=== PATIENT | female | born 1970 | race Caucasian/White ===

== ENCOUNTER 2019-05-06 10:33 | Emergency (ER) | payer BC, SELFPAY ==
--- NOTE | 2019-05-06 10:45 | ED.RECABL ---
HPI - Recheck/Abnormal Lab/Rx General Chief Complaint: Recheck/Abnormal Lab/Rx Stated Complaint: BP ELEVATED Time Seen by Provider: 05/06/19 10:43 Source: patient Mode of arrival: ambulatory Limitations: no limitations History of Present Illness HPI narrative: A 48 y/o female presents to the ED, with c/o high BP at her OBGYN appointment this morning. Pt states her BP was 177/107 in her OBGYN office and her OBGYN, Dr. Oakes discontinued her appointment and sent her to the ED for evaluation. She states she was seen at her OBGYN because she has been on her menstrual cycle for 9 days (since 04/28/2019) with increasingly heavy vaginal bleeding, and lower ABD pain. Pt notes that her normal cycle is usually 4 days long. Pt denies AGUIRRE, N/V/D, constipation, CP or SOB. She denies any PMHx of anxiety or depression and denies taking any prescription medications. Pt notes a PSHx of cholecystectomy. Pt denies hx of smoking and notes that she is an occasional drinker. She reports taking Ibuprofen for her lower ABD pain. complaint: other (High BP reading) Initial visit (ago): hour(s) Description of abnormal result: 177/107 Context: other (sent by OBGYN during appointment) Associated symptoms: abdominal pain (lower d/t menstrual cycle) Treatments prior to arrival: other (Ibuprofen) Related Data Home Medications Medication Instructions Recorded Confirmed No Home Medications 05/06/19 05/06/19 Allergies Allergy/AdvReac Type Severity Reaction Status Date / Time No Known Allergies Allergy Unknown Verified 05/06/19 10:58 Review of Systems Review of Systems: All systems reviewed & are unremarkable except as noted in HPI and below Constitutional: Constitutional: Denies headache(s) Cardiovascular: Cardiovascular: Denies chest pain and Denies dyspnea Gastrointestinal: Gastrointestinal: Reports abdominal pain (lower), Denies constipation, Denies diarrhea, Denies nausea and Denies vomiting Genitourinary: Genitourinary: Reports abnormal menses (9 day cycle, heavy vaginal bleeding) [facility] Past Medical History Medical History (Updated 05/06/19 @ 13:30 by Kyle Magana MD) Gallbladder disease Hypertension induced hypertension Right wrist fracture Surgical History Surgical History (Updated 05/06/19 @ 12:26 by SERJIO Granados) History of cholecystectomy Social History Social History (Updated 05/06/19 @ 12:26 by Rajinder [employer]) Smoking status: Never smoker Second hand tobacco smoke exposure: Yes () Exam Narrative: Exam Narrative: General appearance: Well-developed, well-nourished Skin: Normal color Head: Normocephalic, nontraumatic Eyes: Clear conjunctiva ENT: Oropharynx normal, ears normal, nose normal Neck: Supple, nontender Chest and respiratory: Airway patent, no respiratory distress, no accessory muscle use Heart: Regular rate/rhythm Abdomen: Soft, nontender, no organomegaly, quiet bowel sounds Vascular: Normal peripheral pulses, normal capillary refill. Musculoskeletal: Normal range of motion, nontender back Neurologic: Alert and oriented ?3, BILLING ASSISTANT is normal as tested, no gross motor deficit : Other: Vaginal exam showed trace of vaginal bleeding, small blood clots, 3 long Q-tips was enough to dry the whole vaginal pouch, I could not see the cervix. Course Course Emergency Course: Stable Consultations Consultation #1: Discussed case with pt's OBGYN, Dr. Oakes. Dr. Oakes is aware that pt is anemic at this time and suggests follow-up in her office and to have pt follow-up with PCP. Date: 05/06/19 Time: 13:41 Vital Signs Vital signs: Vital Signs Temperature 36.9 C 05/06/19 10:48 Pulse Rate 89
[2019-05-06 10:48] VITALS: BP 177/107; PULSE 89; RESP 16; TEMP 36.9; O2SAT 100
--- NOTE | 2019-05-06 10:54 | ECG_ITS ---
Measurements Intervals Pep Rate: 69 P: 55 VT: 128 QRS: 42 QRSD: 90 T: 29 QT: 382 QTc: 411 Interpretive Statements SINUS RHYTHM NONSPECIFIC ST & T-WAVE ABNORMALITY- LATERAL LEADS BASELINE ARTIFACT- V5-V6 BORDERLINE ECG Electronically Signed On 05-06-2019 12:02:09 CDT by Jay Jay Worthy D.O.
[2019-05-06 11:07] LABS: Basophils Absolute Auto 0.1 K/mm3 (0.0-0.1); Basophils Percent Auto 1.3 % (0.2-1.2); Eosinophils Absolute Auto 0.3 K/mm3 (0-0.3); Eosinophils Percent Auto 4.9 % (0-4.4); Hematocrit 28.4 % (37.0-47.0); Hemoglobin 8.1 g/dL (12.0-15.0); Immature Granulocyte Absolute 0.01 K/mm3 (0.00-0.031); Immature Granulocyte Percent A 0.2 % (0-0.5); Lymphocytes Absolute Auto 2.07 K/mm3 (0.9-3.2); Lymphocytes Percent Auto 33.5 % (18.3-44.2); Mean Corpuscular HGB Conc 28.5 g/dl (32-36); Mean Corpuscular Hemoglobin 19.7 pg (26-34); Mean Corpuscular Volume 68.9 fl (80-100); Mean Platelet Volume 9.5 fl (7.4-10.4); Monocytes Absolute Auto 0.7 K/mm3 (0.1-0.6); Monocytes Percent Auto 11.2 % (2.6-8.5); Neutrophils Percent Auto 48.9 % (45.5-73.1); Platelet Count Result 408 k/mm3 (150-375); Red Blood Count 4.12 M/mm3 (4.2-5.4); Red Cell Distribution Width 18.6 % (11.5-14.5); White Blood Count 6.2 K/mm3 (4.5-10.0)
[2019-05-06 11:20] LABS: Alanine Aminotransferase 20 U/L (4-35); Albumin Level 4.1 g/dL (3.5-5.1); Alkaline Phosphatase 58 U/L (38-126); Aspartate Amino Transferase 25 U/L (14-36); Bilirubin,Total 0.2 mg/dL (0.2-1.3); Blood Urea Nitrogen 16 mg/dL (7-17); Calcium 8.7 mg/dL (8.4-10.2); Carbon Dioxide 22 mmol/L (22-30); Chloride 105 mmol/L (98-107); Estimated CRCL calculation 101 ml/min; Estimated Glomerular Filt Rate > 60; Glucose 101 mg/dL (65-105); Lipase 166 U/L (23-300); Potassium 4.3 mmol/L (3.4-5.0); Sodium 135 mmol/L (137-145)
[2019-05-06 11:23] LABS: Hypochromasia 1+ (NORMAL); Ovalocytes 1+ (NORMAL); Platelet Estimate Adequate (Adequate)
--- NOTE | 2019-05-06 11:31 | PC.NURSE ---
Patient up to bathroom to provide urine.
--- NOTE | 2019-05-06 11:48 | PC.NURSE ---
Urine sample provided by the patient was grossly bloody and contained blood clots. Patient reports having large amount of vaginal bleeding. She reports that she has placed a tampon and will attempt to provide another specimen as soon as she is able. The current sample was sent down to the lab.
[2019-05-06 12:17] LABS: Appearance Urine Cloudy (Clear); Color Urine Red (Yellow)
[2019-05-06 12:18] LABS: Blood Urine 3+ (Negative); Glucose Urine UA 1+ mg/dL (Negative); Ketones Urine Negative (Negative); Protein Urine 3+ mg/dL (Negative); Specific Grav Ur 1.024 (1.001-1.035)
[2019-05-06 12:19] LABS: Add Urine Microscopic? YES; Bilirubin Urine Negative (Negative); Leukocyte Esterase Ur Negative LEU/UL (Negative); Nitrate Urine Negative (Negative); Urobilinogen Urine Negative mg/dL (<2.0)
[2019-05-06 12:20] LABS: RBC Urine >75 /hpf (0-2); Squamous Epithelial Cell Urine Many /hpf (Few); WBC Urine >75 /hpf
[2019-05-06 12:22] VITALS: BP 166/99; PULSE 70; RESP 18; TEMP 36.2; O2SAT 100
--- NOTE | 2019-05-06 13:13 | PC.NURSE ---
EDP in room with medical imaging technician for pelvic exam at this time.
[2019-05-06 13:30] VITALS: BP 158/94; PULSE 68; RESP 19; TEMP 36.6; O2SAT 100
[2019-05-06 14:06] VITALS: BP 149/86; PULSE 66; RESP 17; TEMP 36.7; O2SAT 100
== END 2019-05-06 14:06 | disposition home or self-care (01) ==
PROVIDERS: Emergency Provider Emergency Medicine
DX: I10 Essential (primary) hypertension (principal); N93.8 Other specified abnormal uterine and vaginal bleeding; D50.9 Iron deficiency anemia, unspecified; N39.0 Urinary tract infection, site not specified; F41.9 Anxiety disorder, unspecified; F32.9 Major depressive disorder, single episode, unspecified; R94.31 Abnormal electrocardiogram [ECG] [EKG]
CPT/HCPCS: 36415; 80053; 81001; 81025; 83690; 85025; 87077; 87086; 87088; 87186; 93005; 99283

== ENCOUNTER 2019-05-12 00:34 | Day surgery (SDC) | payer BC, SELFPAY ==
[2019-05-08 10:48] VITALS: BMI 33.6
[2019-05-12] MEDS: LACTATED RINGERS 1,000 ML 30 ML IV CONT (07:40)
--- NOTE | 2019-05-12 07:42 | WPDANESEPPF ---
Anes - Initial Pre Proc Eval Procedure: Operation Date: 05/12/19 09:00 Proposed Procedures p Hysteroscopy, Dilation and Curettage - Catrina Oakes MD Date/Time: 05/12/19 07:42 Surgeon: Catrina Oakes MD Pre Op Diagnosis: menorrhaghia Patient Data Age: 48 Gender: F Height: 5 ft 7 in Weight: 97.52 kg Allergies Allergy/AdvReac Type Severity Reaction Status Date / Time No Known Allergies Allergy Unknown Verified 05/08/19 10:49 Home Medications Medication Instructions Recorded Confirmed Type ferrous gluconate 324 mg PO DAILY #30 tablet 05/06/19 05/08/19 Rx losartan 50 mg PO DAILY #30 tablet 05/06/19 05/08/19 Rx nitrofurantoin monohyd/m-cryst 100 mg PO Q12H 5 Days #10 cap 05/06/19 05/08/19 Rx [Macrobid] Patient hx anesthesia problems: none Family hx anesthesia problems: none PMFSH Past Medical History Medical History Gallbladder disease Hypertension induced hypertension Right wrist fracture Surgical History Surgical History History of cholecystectomy Social History Social History Smoking status: Never smoker Second hand tobacco smoke exposure: Yes () Anes - Eval Final PreProcedure Day of Procedure 05/12/19 07:42 Patient weight: overweight Heart: regular rate and rhythm Lungs: clear to auscultation Airway: Mallampati scale class 1 Neurological: alert and oriented Last oral intake: >/= 8 hours ASA classification: II Emergent: yes Anesthetic plan: proceed Anesthesia type and monitoring: general GIVS and standard monitoring Informed Consent: The patient's anesthetic plan and its attendant risks and benefits were discussed with the patient/family/POA. Questions were solicited and answers provided to the satisfaction of the patient/family/POA.
[2019-05-12 07:45] VITALS: BP 146/91; PULSE 95; TEMP 36.7; O2SAT 100
[2019-05-12 07:55] LABS: Hematocrit 27.4 % (37.0-47.0); Hemoglobin 7.9 g/dL (12.0-15.0)
--- NOTE | 2019-05-12 08:44 | PM.HPGS ---
History of Present Illness History of Present Illness Consent: Risks, benefits, and alternatives have been discussed and questions answered. Patient agrees to proceed with procedure. Chief complaint: menorrhaghia Narrative: Rosey Preciado is a 48 year old female with recent onset of heavy cycles. Hb 8.1. Recommend to proceed with D&C hysteroscopy with possible myosure. Possible pathology discussed. Risks of infection, bleeding, and perforation reviewed. Fluid imbalance discussed. Patient agrees to proceed. [facility] Past Medical History Medical History (Updated 05/12/19 @ 08:47 by Catrina Oakes MD) Gallbladder disease Hypertension (normal spontaneous vaginal delivery) x 2 induced hypertension Right wrist fracture Surgical History Surgical History History of cholecystectomy Social History Social History Smoking status: Never smoker Second hand tobacco smoke exposure: Yes () Meds Home Medications and Allergies Home Medications Medication Instructions Recorded Confirmed Type ferrous gluconate 324 mg PO DAILY #30 tablet 05/06/19 05/08/19 Rx losartan 50 mg PO DAILY #30 tablet 05/06/19 05/08/19 Rx nitrofurantoin monohyd/m-cryst 100 mg PO Q12H 5 Days #10 cap 05/06/19 05/08/19 Rx [Macrobid] Allergies Allergy/AdvReac Type Severity Reaction Status Date / Time No Known Allergies Allergy Unknown Verified 05/08/19 10:49 Vital Signs Vital Signs - 24 hr 05/12/19 07:45 Temperature 98.0 F Pulse Rate 95 Blood Pressure 146/91 H Pulse Oximetry 100 Exam Const: General: healthy appearing and alert Orientation/consciousness: patient oriented x3 Resp: Effort & Inspection: normal respiratory effort Auscultation: clear to auscultation bilaterally Cardio: Rate: regular rate Rhythm: regular rhythm GI: GI Palp: Yes Soft to palpation, No Tenderness to palpation present (GI) and No Palpable mass present : External Female Exam: normal external appearance Speculum Exam - Vagina: normal appearance of the vagina and normal vaginal discharge Speculum Exam - Cervix: normal appearance of the cervix Bimanual exam- vagina & uterus: uterine size normal and consistency normal Bimanual Exam- Adnexa, other: normal adnexae and No adnexal tenderness Neuro: General: patient oriented x3 Assessment and Plan Assessment and plan (1) Menorrhagia: Code(s): N92.0 - Excessive and frequent menstruation with regular cycle Status: Acute Assessment and Plan: with anemia Plan to proceed with hysteroscopy D&C
[2019-05-12] MEDS: KETOROLAC 30 MG/ML VIAL (*BKC) IV PUSH (09:21)
--- NOTE | 2019-05-12 09:23 | SUR.OPER ---
Ebl=5ml
--- NOTE | 2019-05-12 09:26 | PM.OP ---
Procedure Note - Brief Procedure Note - Brief Date of procedure: 05/12/19 Pre-op diagnosis: menorrhaghia Post-op diagnosis: same Procedure performed: D&C hysteroscopy with Myosure resection of fibroids Anesthesia: local Surgeon: Catrina Oakes MD Estimated blood loss (mL): 5 Drains: No Packing: No Pathology: yes (endometrial curettings and shavings) Complications: No immediate complications Condition: stable Disposition: PACU Findings: Uterus 8 cm; large fibroids left lateral and anterior
[2019-05-12 09:34] VITALS: BP 118/67; PULSE 83; RESP 18; TEMP 36.7; O2SAT 99
[2019-05-12 10:04] VITALS: BP 125/74; PULSE 63; RESP 18; O2SAT 100
--- NOTE | 2019-05-12 10:28 | SUR.PHASEII ---
DISCHARGE PACKET WOULD NOT PRINT OUT. PT GIVEN PAPER DISCHARGE INSTRUCTIONS. ALL QUESTIONS ANSWERED.
--- NOTE | 2019-05-12 10:53 | OP_ITS ---
DATE OF PROCEDURE: 05/12/2019 PREOPERATIVE DIAGNOSIS: Menorrhagia with anemia. POSTOPERATIVE DIAGNOSIS: Menorrhagia with anemia. PROCEDURE: D and C and hysteroscopy with MyoSure resection of fibroids. SURGEON: Catrina Oakes M.D. ANESTHESIA: MAC and local. FINDINGS: The uterus sounds to 8 cm. There was a large left lateral fibroid, as well as a sessile anterior fibroid. The remainder of the endometrium appears grossly normal. ESTIMATED BLOOD LOSS: 5 cc. PATHOLOGY: Endometrial shavings and curettings. DESCRIPTION OF PROCEDURE: The patient was taken to the operating room and placed under anesthesia in the dorsal lithotomy position. She was prepped and draped in the usual sterile fashion. A bivalved speculum was placed in the vagina. Cervix was grasped on the anterior lip with a tenaculum and injected with 1% lidocaine. The uterus was sounded to 8 cm. The cervix was serially dilated with Hegar's. A diagnostic hysteroscope was placed with the above-stated findings. The MyoSure device was opened and placed. Under direct visualization, the fibroids were shaved until the endometrium was smooth. The MyoSure device was then removed. A medium sharp curette was used to sharply curette the endometrium until a good uterine cry was noted in all areas. All instruments were then removed. The patient was awakened from anesthesia and taken to Recovery in stable condition. D I MT: Janis
== END 2019-05-12 10:21 | disposition home or self-care (01) ==
PROVIDERS: PCP Emergency Medicine; Visit Provider Obstetrics & Gynecology Gynecology
PROC: 0U5B8ZZ Destruction of Endometrium, Via Natural or Artificial Opening Endoscopic (ICD-10-PCS; CPT 58563; principal; 2019-05-12 08:15)
DX: N92.0 Excessive and frequent menstruation with regular cycle (principal); D64.9 Anemia, unspecified; D25.9 Leiomyoma of uterus, unspecified; I10 Essential (primary) hypertension
CPT/HCPCS: 58558; 36415; 85014; 85018; 88305; A9270; J1885; J2250; J2704; J3010; J7030; J7120

== ENCOUNTER → 2020-05-12 15:19 | Outpatient (CLI) | payer BC, SELFPAY ==
--- NOTE | ~2020-05-12 | MM_ITS ---
EXAMINATION: MM screening dorothy BI w shyam HISTORY: Screening TECHNIQUE: Craniocaudal and mediolateral oblique 3-D tomosynthesis images were obtained and synthetic 2-D images were generated. CAD analysis was submitted and interpreted. COMPARISON: No prior mammogram is available for comparison at this institution. BREAST PARENCHYMAL COMPOSITION: There are scattered areas of fibroglandular density. FINDINGS: There are asymmetries in the mid outer aspect of the left breast. There are no suspicious m asses, calcifications or architectural distortion in the right breast. IMPRESSION: 1. Focal asymmetry mid lateral aspect of the left breast. 2. Additional mammographic views and possible breast ultrasound are recommended. BI-RADS Category 0: Incomplete: Needs additional imaging evaluation. Reviewed, dictated and finalized at location A. IMPRESSION: 1. Focal asymmetry mid lateral aspect of the left breast. 2. Additional mammographic views and possible breast ultrasound are recommended . BI-RADS Category 0: Incomplete: Needs additional imaging evaluation.
== END ==
PROVIDERS: PCP Emergency Medicine; Visit Provider Obstetrics & Gynecology Gynecology
DX: Z12.31 Encounter for screening mammogram for malignant neoplasm of breast (principal); R92.8 Other abnormal and inconclusive findings on diagnostic imaging of breast
CPT/HCPCS: 77063; 77067

== ENCOUNTER → 2020-06-04 07:55 | Outpatient (CLI) | payer BC, SELFPAY ==
--- NOTE | ~2020-06-04 | MMUS_ITS ---
EXAMINATION: MM diagnostic mammo unilat LT, US breast LT limited HISTORY: Follow-up left breast asymmetry TECHNIQUE: Additional 3-D tomosynthesis images of the left breast were performed and synthetic 2-D im ages were generated. CAD analysis was submitted and interpreted. High resolution left breast ultrasou nd was performed. COMPARISON: 05/12/2020 BREAST PARENCHYMAL COMPOSITION: Breast composed of scattered areas of fibroglandular density. FINDINGS: MAMMOGRAPHIC FINDINGS: There are no suspicious masses, calcifications or architectural distortion in the left breast to sugg est malignancy. ULTRASOUND: Limited left breast ultrasound: At 2:00, 5 cm from the nipple, there is a 4 mm cyst. At 2:00, 4 cm fr om the nipple there is a 6 mm cyst. At 3:00, 6 cm from the nipple, there is a 5 mm cyst. Near the are rajinder there is a 6 mm cyst. No suspicious masses to suggest malignancy. IMPRESSION: 1. No evidence for malignancy in the left breast. Benign findings. 2. Routine yearly screening mammogram and regular clinical breast examination are recommended. BI-RADS Category 2: Benign finding(s). Reviewed, dictated and finalized at location A. IMPRESSION: 1. No evidence for malignancy in the left breast. Benign findings. 2. Routine yearly screening mammogram and regular clinical breast examination a re recommended. BI-RADS Category 2: Benign finding(s).
== END ==
PROVIDERS: PCP Emergency Medicine; Visit Provider Emergency Medicine
DX: R92.8 Other abnormal and inconclusive findings on diagnostic imaging of breast (principal)
CPT/HCPCS: 76642; 77065

== ENCOUNTER → 2021-09-21 15:15 | Outpatient (CLI) | payer BC, SELFPAY ==
--- NOTE | ~2021-09-21 | MM_ITS ---
EXAMINATION: MM screening dorothy BI w shyam HISTORY: Screening TECHNIQUE: Craniocaudal and mediolateral oblique 3-D tomosynthesis images were obtained and synthetic 2-D images were generated. CAD analysis was submitted and interpreted. COMPARISON: 05/13/2019 BREAST PARENCHYMAL COMPOSITION: There are scattered areas of fibroglandular density. FINDINGS: There is a developing asymmetry in the upper outer quadrant of the left breast. The right b reast is stable without evidence for malignancy. IMPRESSION: 1. Evolving left breast asymmetries. 2. Additional mammographic views and possible breast ultrasound are recommended. BI-RADS Category 0: Incomplete: Needs additional imaging evaluation. Reviewed, dictated and finalized at location A. IMPRESSION: 1. Evolving left breast asymmetries. 2. Additional mammographic views and possible breast ultrasound are recommended . BI-RADS Category 0: Incomplete: Needs additional imaging evaluation.
== END ==
PROVIDERS: PCP Emergency Medicine; Visit Provider Obstetrics & Gynecology Gynecology
DX: Z12.31 Encounter for screening mammogram for malignant neoplasm of breast (principal); R92.8 Other abnormal and inconclusive findings on diagnostic imaging of breast
CPT/HCPCS: 77063; 77067

== ENCOUNTER → 2021-10-07 07:48 | Outpatient (CLI) | payer BC, SELFPAY ==
--- NOTE | ~2021-10-07 | MMUS_ITS ---
EXAMINATION: MM diagnostic dorothy LT w shyam, US breast LT limited HISTORY: Left breast asymmetries reported on 09/21/2021 screening mammogram TECHNIQUE: Additional 3-D tomosynthesis images of the left breast were performed and synthetic 2-D im ages were generated. Rolled medial and rolled lateral craniocaudal views. CAD analysis was submitted and interpreted. High resolution limited left breast ultrasound was performed. COMPARISON: 09/21/2021 bilateral screening mammogram 06/04/2020 diagnostic left mammogram and limited left breast ultrasound FINDINGS: MAMMOGRAPHIC FINDINGS: No suspicious mass, architectural distortion, malignant calcification, skin thickening or retraction is detected. ULTRASOUND: At 2:00 4 cm from the nipple there is a parallel circumscribed 1.8 x 2.7 x 3 x 7 mm hypoechoic area w ithout internal vascularity or posterior shadowing, benign in appearance. Previously reported 6 mm cyst at 2:00 4 cm from nipple and 5 mm cyst at 3:00 6 cm from the nipple in addition to 6 mm cyst near the areola are no longer identified since 06/04/2020. IMPRESSION: 1. No mammographic evidence of malignancy 2. Routine annual mammographic screening is recommended BI-RADS Category 2: Benign finding(s). Reviewed, dictated and finalized at location A. IMPRESSION: 1. No mammographic evidence of malignancy 2. Routine annual mammographic screening is recommended BI-RADS Category 2: Benign finding(s).
== END ==
PROVIDERS: PCP Emergency Medicine; Visit Provider Obstetrics & Gynecology Gynecology
DX: R92.8 Other abnormal and inconclusive findings on diagnostic imaging of breast (principal)
CPT/HCPCS: 76642; 77061; 77065; G0279

== ENCOUNTER → 2021-10-29 07:33 | Outpatient (CLI) | payer BC, SELFPAY ==
--- NOTE | ~2021-10-29 | US_ITS ---
EXAMINATION: US transvaginal DATE: 10/29/2021 08:40 INDICATION: Ovarian mass TECHNIQUE: Multiple transabdominal and endovaginal sonographic images of the pelvis were obtained. COMPARISON: None. FINDINGS: Uterus: 8.3 x 5.5 x 6.0 cm. Heterogeneous parenchyma. Endometrial complex measures 7.5 mm. Right Ovary: 1.2 x 1.7 x 1.6 cm. Vascular flow is present. Left Ovary: 2.3 x 1.3 x 2.1 cm. Vascular flow is present. There is no free fluid in the pelvis. IMPRESSION: Normal pelvic sonogram findings. Reviewed, dictated and finalized at location K.
== END ==
PROVIDERS: PCP Emergency Medicine; Visit Provider Obstetrics & Gynecology Gynecology
DX: R19.09 Other intra-abdominal and pelvic swelling, mass and lump (principal)
CPT/HCPCS: 76830

== ENCOUNTER 2022-06-01 17:08 | Outpatient (CLI) | payer BC, SELFPAY ==
[2022-06-01 17:23] LABS: Hematocrit 27.9 % (37.0-47.0); Hemoglobin 8.2 g/dL (12.0-15.0)
== END 2022-06-01 17:09 | disposition home or self-care (01) ==
PROVIDERS: PCP Emergency Medicine; Visit Provider Obstetrics & Gynecology Gynecology
DX: N92.0 Excessive and frequent menstruation with regular cycle (principal)
CPT/HCPCS: 36415; 85014; 85018

== ENCOUNTER 2022-06-05 01:40 | Day surgery (SDC) | payer BC, SELFPAY ==
[2022-05-29 16:46] VITALS: BMI 35.5
--- NOTE | 2022-05-29 17:08 | PC.NURSE ---
Report to the Outpatient Waiting Room, entrance under the green pavilion located off [facility], at time 1130_ on date _06/05/22. Planned Procedure Time: 1330. Time changes happen often and if your time is changed the preop area will call you the afternoon before. - You and your visitor will be asked to self-screen and do not enter if you have any COVID symptoms. - A mask is optional within the hospital at this time. Patients may have clear liquids (water, carbonated beverages, clear teas, apple juice) until 3 hours prior to surgery with a maximum of 20 ounces. - No food from midnight until time of surgery - Infants may have breast milk until 4 hours before surgery, infant formula 6 hours prior to surgery. - Children will be allowed to drink immediately following surgery. If applicable, please bring a bottle or sippy cup to assist with drinking. Juice, water, soda, and popsicles are readily available. For infants on formula, please bring formula the day of surgery. Pacifiers are allowed. Take the following medications with a SIP of water the morning of surgery: _carvedilol_ DO NOT STOP ANY OF YOUR OTHER PRESCRIPTION MEDICATIONS PRIOR TO SURGERY ?EXCEPT THE FOLLOWING Medications to discontinue per physician __ferrous gluconate, vitamin d2 Date to take last dose_06/02/22__ Please no make-up, nail swedish, hairspray, perfume, deodorant, or body powder the day of surgery. No jewelry (including any body piercings) or valuables the day of surgery, leave them at home. Please take a shower or bath the night before, or the morning of, surgery with an antibacterial soap. Wear comfortable, loose fitting clothing. Children are encouraged to wear pajamas. - Jewelry must be removed prior to entering the operating room. Rings and piercings that are not removed may be cut off. - The hospital will not accept responsibility for valuables. - Please leave all valuables, including medications, at home the day of surgery. If you are going home after surgery, a licensed compactor driver must drive you home. - NO public transportation without another adult if you receive anesthesia. - We recommend that an adult stay with you for 24 hours following discharge. - We also recommend that you do not drive, make important decision, drink alcoholic beverages, or take any drugs that were not prescribed by your health care provider for at least 24 hours after your discharge time. For Pediatric surgeries, we recommend two adults accompany the child home. Follow any additional instructions given to you from your surgeon. If you or anyone in your household have experienced Covid symptoms in the past week, please notify your surgeon or the nurse liaison at the phone number below for possible testing. Telephone instructions given to Rosey Lauraand asked if any additional questions and then verbalized understanding. Patient advised to call surgeon office or pre surgery nurse liaison [phone] if any additional questions.
--- NOTE | 2022-06-05 08:10 | P.HP_ITS ---
History of Present Illness History of Present Illness Consent: Risks, benefits, and alternatives have been discussed and questions answered. Patient agrees to proceed with procedure. Chief complaint: menorrhagia Narrative: Rosey Preciado is a 51 year old female with menorrhagia with anemia. Patient hemoglobin is 8.2. Pelvic ultrasound was normal. It was recommended to proceed with hysteroscopy D&C to further evaluate. Risks of infection, bleeding, perforation, and possible pathology are discussed. Patient voices understanding and agrees to proceed. Review of Systems Review of Systems: not repeated day of surgery; patient states no changes in status [facility] Past Medical History Medical History (Updated 06/05/22 @ 08:12 by Catrina Oakes MD) Hypertension (normal spontaneous vaginal delivery) x 2 Right wrist fracture Surgical History Surgical History (Updated 06/05/22 @ 08:12 by Catrina Oakes MD) History of cholecystectomy History of hysteroscopy 2019 Social History Social History Smoking status: Never smoker Second hand tobacco smoke exposure: Yes () Alcohol intake: current Substance use: never Living arrangements: with family Spiritual care concerns: No Meds Home Medications and Allergies Home Medications Medication Instructions Recorded Confirmed Type ferrous gluconate 324 mg (37.5 mg 324 mg PO DAILY #30 tabs 05/06/19 05/29/22 Rx iron) tablet losartan 50 mg tablet 50 mg PO DAILY #30 tabs 05/06/19 05/29/22 Rx carvedilol 6.25 mg tablet 6.25 mg PO DAILY 05/29/22 05/29/22 History ergocalciferol (vitamin D2) 1,250 1,250 mcg PO DAILY 05/29/22 05/29/22 History mcg (50,000 unit) capsule Allergies Allergy/AdvReac Type Severity Reaction Status Date / Time No Known Allergies Allergy Unknown Verified 05/08/19 10:49 Exam Const: General: healthy appearing and alert Orientation/consciousness: patient oriented x3 Resp: Effort & Inspection: normal respiratory effort GI: GI Palp: Yes Soft to palpation, No Tenderness to palpation present (GI) and No Palpable mass present : External Female Exam: normal external appearance Speculum Exam - Vagina: normal appearance of the vagina and normal vaginal discharge Speculum Exam - Cervix: normal appearance of the cervix Bimanual exam- vagina & uterus: uterine size normal and consistency normal Bimanual Exam- Adnexa, other: normal adnexae and No adnexal tenderness Neuro: General: patient oriented x3 Assessment and Plan Assessment and plan (1) Menorrhagia: Code(s): N92.0 - Excessive and frequent menstruation with regular cycle Status: Acute Assessment and Plan: plan to proceed with D&C hysteroscopy
--- NOTE | 2022-06-05 08:10 | WPDHPUPDATE1 ---
History and Physical Update Update Date/Time: 06/05/22 08:10 History and Physical has been reviewed, including an updated exam of the patient. There are NO changes in the patient's condition. Risks, benefits, and alternatives have been discussed and questions answered. Patient agrees to proceed with procedure.
--- NOTE | 2022-06-05 09:01 | P.PNAN_ITS ---
Anes - Initial Pre Proc Eval Procedure: Operation Date: 06/05/22 11:45 Proposed Procedures p Hysteroscopy, Dilation and Curettage - Catrina Oakes MD Date/Time: 06/05/22 09:01 Surgeon: Catrina Oakes MD Pre Op Diagnosis: menorrhagia Patient Data Age: 51 Gender: F Height: 1.7 m Weight: 103 kg Allergies Allergy/AdvReac Type Severity Reaction Status Date / Time No Known Allergies Allergy Unknown Verified 06/05/22 10:26 Home Medications Medication Instructions Recorded Confirmed Type ferrous gluconate 324 mg (37.5 mg 324 mg PO DAILY #30 tabs 05/06/19 05/29/22 Rx iron) tablet losartan 50 mg tablet 50 mg PO DAILY #30 tabs 05/06/19 05/29/22 Rx carvedilol 6.25 mg tablet 6.25 mg PO DAILY 05/29/22 06/05/22 History ergocalciferol (vitamin D2) 1,250 1,250 mcg PO DAILY 05/29/22 05/29/22 History mcg (50,000 unit) capsule Patient hx anesthesia problems: none Family hx anesthesia problems: none Results Review: All pre-operative results and documents have been reviewed as part of the pre- operative evaluation. [facility] Past Medical History Medical History (Updated 06/05/22 @ 08:12 by Catrina Oakes MD) Hypertension (normal spontaneous vaginal delivery) x 2 Right wrist fracture Surgical History Surgical History (Updated 06/05/22 @ 08:12 by Catrina Oakes MD) History of cholecystectomy History of hysteroscopy 2019 Social History Social History Smoking status: Never smoker Second hand tobacco smoke exposure: Yes () Alcohol intake: current Substance use: never Living arrangements: with family Spiritual care concerns: No Anes - Eval Final PreProcedure Day of Procedure 06/05/22 09:01 Patient weight: obese Heart: regular rate and rhythm Lungs: clear to auscultation Airway: Mallampati scale class II Neurological: alert and oriented Last oral intake: >/= 8 hours ASA classification: III Emergent: no Anesthetic plan: proceed Anesthesia type and monitoring: general GIVS and standard monitoring Results Review: All pre-operative results and documents have been reviewed as part of the pre- operative evaluation. Informed Consent: The patient's anesthetic plan and its attendant risks and benefits were discussed with the patient/family/POA. Questions were solicited and answers provided to the satisfaction of the patient/family/POA.
[2022-06-05 09:34] VITALS: BP 153/90; PULSE 62; RESP 18; TEMP 36.5; O2SAT 100
[2022-06-05] MEDS: LACTATED RINGERS 1,000 ML 30 ML IV CONT (10:43)
[2022-06-05] MEDS: ACETAMINOPHEN 500 MG TABLET 1000 MG PO (10:45)
[2022-06-05] MEDS: LIDOCAINE HCL 1% LOCAL INJ 20 ML VIAL 10 ML INFILTRATE (11:45)
[2022-06-05 11:55] VITALS: BP 128/80; PULSE 64; RESP 18; O2SAT 100
--- NOTE | 2022-06-05 11:55 | W.PM.PROC2 ---
Procedure Note - Detailed Date of Procedure 06/05/22 Pre-op Diagnosis menorrhagia with anemia Post-op Diagnosis Same Procedure Performed D&C hysteroscopy Surgeon Catrina Oakes MD Anesthesia MAC and Local Findings uterus sounds to 8cm and appears grossly thickened Description of Procedure The patient is taken to operating room and placed under anesthesia in the dorsal lithotomy position. She was prepped and draped in usual sterile fashion. [place] speculum was placed in the and the cervix was grasped on the anterior lip with a tenaculum. Injected in each quadrant with lidocaine 1%. The uterus is sounded to 8cm. The hysteroscope was placed with the above-stated findings. The hysteroscope is removed and the sharp curette used to curette the endometrium until a good uterine cry was noted in all areas. Instruments were then removed. Sponge, needle, and instrument counts are correct per the OR staff. Patient is awakened from anesthesia and taken to recovery in stable condition. Estimated Blood Loss 5 Drains No Packing No Pathology Yes ( Endometrial curettings) Complications No immediate complications Condition Stable Disposition PACU
[2022-06-05 12:25] VITALS: BP 143/86; PULSE 60; RESP 18
[2022-06-05 12:45] VITALS: BP 126/78; PULSE 55; RESP 16
== END 2022-06-05 12:48 | disposition home or self-care (01) ==
PROVIDERS: PCP Emergency Medicine; Visit Provider Obstetrics & Gynecology Gynecology
PROC: 0U5B8ZZ Destruction of Endometrium, Via Natural or Artificial Opening Endoscopic (ICD-10-PCS; CPT 58563; principal; 2022-06-05 11:45)
DX: N92.0 Excessive and frequent menstruation with regular cycle (principal); D64.9 Anemia, unspecified; I10 Essential (primary) hypertension; E66.9 Obesity, unspecified; Z68.33 Body mass index [BMI] 33.0-33.9, adult
CPT/HCPCS: 58558; 88305; A9270; J2250; J3010; J7120

== ENCOUNTER 2022-09-02 16:36 | Emergency (ER) | payer BC, SELFPAY ==
[2022-09-02 16:45] VITALS: BP 149/78; PULSE 76; RESP 16; TEMP 36.7; O2SAT 99
--- NOTE | 2022-09-02 17:56 | ED.SKABFB ---
HPI - Skin/Abscess/Foreign Bdy General Chief complaint: Skin/Abscess/Foreign Body Stated complaint: left arm irritation Time Seen by Provider: 09/02/22 16:55 Source: patient and RN notes reviewed Mode of arrival: ambulatory Limitations: no limitations History of Present Illness HPI narrative: Patient presents today complaining of an insect sting to her left lateral upper arm last night. Reports the redness surrounding the bite has been progressively worsening. Reports itching but no pain. She took 1 -25 mg Benadryl at 7:00 a.m. this morning and applied some Benadryl cream without relief. Related Data Home Medications Medication Instructions Recorded Confirmed carvedilol 6.25 mg tablet 6.25 mg PO DAILY 05/29/22 09/02/22 ergocalciferol (vitamin D2) 1,250 1,250 mcg PO DAILY 05/29/22 09/02/22 mcg (50,000 unit) capsule Allergies Allergy/AdvReac Type Severity Reaction Status Date / Time No Known Allergies Allergy Unknown Verified 09/02/22 16:53 Review of Systems Review of Systems: CONSTITUTIONAL: Denies body aches, fever, chills, or sweats. EYES: Denies visual changes, redness, or discharge. ENT: Denies rhinorrhea, congestion, sore throat, or otalgia. CARDIOVASCULAR: Denies chest pain, palpitations, or edema. RESPIRATORY: Denies cough or dyspnea. GASTROINTESTINAL: Denies abdominal pain, nausea, vomiting, or diarrhea. GENITOURINARY: Denies dysuria or hematuria. SKIN: + insect bite to left upper arm MUSCULOSKELETAL: Denies back pain, joint pain, or myalgia. NEUROLOGIC: Denies headache, numbness, tingling, or weakness. PSYCH: Denies depression or anxiety. [facility] Past Medical History Medical History Hypertension (normal spontaneous vaginal delivery) x 2 Right wrist fracture Surgical History Surgical History History of cholecystectomy History of hysteroscopy 2020 Social History Social History Smoking status: Never smoker Second hand tobacco smoke exposure: Yes () Alcohol intake: current Substance use: never Living arrangements: with family Spiritual care concerns: No Comments At time of signature, I have reviewed and agree with nursing past medical, surgical, social and family history unless otherwise noted. Please see nursing chart for further information. There is no relevant family history pertinent to the presenting complaint Exam Narrative: GENERAL: Well-appearing, well-nourished, and in no acute distress. HEAD: Normocephalic, atraumatic. EYES: EOMI. No redness or drainage. Conjunctivae normal. ENT: Mucous membranes pink and moist. NECK: Normal AROM. CHEST: No respiratory distress. EXTREMITIES: Normal range of motion. No edema. SKIN: Warm, dry. Capillary refill normal. Normal skin turgor. 15 x 12 cm area of erythema with scabbed puncture wound in the center to the left lateral upper arm area. The edges of the erythema or slightly raised. No induration noted. No fluctuance noted. No drainage noted. Full range of motion of the elbow and shoulder. NEURO: No focal deficits. Alert and oriented x3. Gait steady. PSYCH: Normal affect. No signs of depression or anxiety. Course Course Level of Care: Express Care Visit Vital Signs Vital signs: Vital Signs Temperature 98.1 F 09/02/22 16:45 Pulse Rate 76 09/02/22 16:45 Respiratory Rate 16 09/02/22 16:45 Blood Pressure 149/78 H 09/02/22 16:45 Pulse Oximetry 99 09/02/22 16:45 Oxygen Delivery Room Air 09/02/22 16:45 Temperature 98.1 F 09/02/22 16:45 Pulse Rate 76 09/02/22 16:45 Respiratory Rate 16 09/02/22 16:45 Blood Pressure 149/78 H 09/02/22 16:45 Pulse Oximetry 99 09/02/22 16:45 Oxygen Delivery Room Air 09/02/22 16:45 Reviewed. Pt has been instructed to follow up with her
== END 2022-09-02 17:09 | disposition home or self-care (01) ==
PROVIDERS: Emergency Provider Nurse Practitioner; PCP Emergency Medicine
DX: S40.862A Insect bite (nonvenomous) of left upper arm, initial encounter (principal); W57.XXXA Bitten or stung by nonvenomous insect and other nonvenomous arthropods, initial encounter; I10 Essential (primary) hypertension
CPT/HCPCS: 99213; G0463

== ENCOUNTER 2022-11-21 09:42 | Observation (INO) | payer BC, SELFPAY ==
[2022-11-21] VITALS (20 sets, daily range): BP systolic 129–169; BP diastolic 60–98; PULSE 67–97; RESP 16–20; TEMP 36.6–37.4; O2SAT 97–100
[2022-11-21 10:20] LABS: Basophils Percent Auto 0.5 % (0.2-1.2); Eosinophils Absolute Auto 0.3 K/mm3 (0-0.3); Immature Granulocyte Absolute 0.04 K/mm3 (0.00-0.031); Immature Granulocyte Percent A 0.5 % (0-0.5); Lymphocytes Absolute Auto 2.04 K/mm3 (0.9-3.2); Mean Corpuscular HGB Conc 26.7 g/dl (32-36); Mean Corpuscular Hemoglobin 18.5 pg (26-34); Mean Corpuscular Volume 69.4 fl (80-100); Mean Platelet Volume 9.6 fl (7.4-10.4); Monocytes Absolute Auto 0.7 K/mm3 (0.1-0.6); Monocytes Percent Auto 8.6 % (2.6-8.5); Neutrophils Absolute Auto 4.5 K/mm3 (1.3-6.7); Neutrophils Percent Auto 59.4 % (45.5-73.1); Nucleated Red Blood Cells Perc 0.3 % (0.0-0.2); Platelet Count Result 456 k/mm3 (150-375); Red Blood Count 2.32 M/mm3 (4.2-5.4); Red Cell Distribution Width 18.2 % (11.5-14.5); White Blood Count 7.6 K/mm3 (4.5-10.0)
[2022-11-21 10:27] LABS: Hematocrit 16.1 % (37.0-47.0)
[2022-11-21 10:28] LABS: Hemoglobin 4.3 g/dL (12.0-15.0)
[2022-11-21 10:30] LABS: Anion Gap 5 mmol/L (8-16); Blood Urea Nitrogen 11 mg/dL (7-17); Calcium 8.7 mg/dL (8.4-10.2); Carbon Dioxide 27 mmol/L (22-30); Chloride 104 mmol/L (98-107); Estimated CRCL calculation 86 ml/min; Estimated Glomerular Filt Rate > 60; Glucose 123 mg/dL (65-110); Potassium 4.4 mmol/L (3.4-5.0); Sodium 136 mmol/L (137-145)
[2022-11-21 10:37] LABS: Hypochromasia 3+ (NORMAL); Platelet Estimate Increased (Adequate)
[2022-11-21 10:38] LABS: Anisocytosis 2+ (NORMAL); Microcytosis 1+ (NORMAL); Poikilocytosis 1+ (NORMAL); Schistocytes None Seen (NORMAL)
[2022-11-21] MEDS: TRANEXAMIC ACID 1,000 MG/10 ML AMPUL 1000 MG IV PUSH (11:53)
[2022-11-21] MEDS: SODIUM CHLORIDE 0.9% IV 250 ML 30 ML IV CONT (12:44)
--- NOTE | 2022-11-21 12:45 | ADMGEN ---
This patient, Rosey Preciado, was admitted to 2 Medical Room 260-01. Patient/family oriented to hospital policies and general routines including ID bracelet, bed and alarms, visiting hours, pain management, procedures, bathroom and other care routines, personal items, smoking policy, room service/diet, and visiting hours. Information on how to activate the Rapid Response Team has been discussed. Patient/Family are encouraged to report perceived risks to care and to ask questions if they do not understand what they are told or what they should do.
[2022-11-21] MEDS: CEPHALEXIN 500 MG CAPSULE PO ×2 (14:07→21:10)
--- NOTE | 2022-11-21 14:38 | PC.NURSE ---
This patient, Rosey Preciado, was transferred to [facility] on 11/21/22 at 1430. Personal belongings sent with patient. Report given to Suzanne KAUFFMAN. Appropriate documentation sent with patient.
--- NOTE | 2022-11-21 15:45 | PHAR ---
HOME MED VERIFIED = MACO [id number] SLYND 4 MG TABS. 1 TAB DAILY.
[2022-11-21] MEDS: FERROUS GLUCONATE 324 MG TABLET PO (16:44)
[2022-11-21] MEDS: carvediloL 6.25 MG TABLET PO (16:44)
--- NOTE | 2022-11-21 17:35 | ED.RECABL ---
HPI - Recheck/Abnormal Lab/Rx General Chief Complaint: Recheck/Abnormal Lab/Rx Stated Complaint: low hemoglobin Time Seen by Provider: 11/21/22 10:03 History of Present Illness HPI narrative: Patient presenting with low hemoglobin sent from transfusion center, she does have heavy periods, is being followed by her OB, had just started taking hormonal control yesterday. On day 18 of her period, she is using both a tampon and a pad. Endorses some fatigue but no chest pain or difficulty breathing. Related Data Home Medications Medication Instructions Recorded Confirmed carvedilol 6.25 mg tablet 6.25 mg PO BID 05/29/22 11/21/22 cephalexin 500 mg capsule 500 mg PO Q6H 11/21/22 11/21/22 drospirenone (contraceptive) 4 mg 1 tablet PO DAILY 11/21/22 11/21/22 (28) tablet ferrous gluconate 324 mg (37.5 mg 324 mg PO BID 11/21/22 11/21/22 iron) tablet Allergies Allergy/AdvReac Type Severity Reaction Status Date / Time No Known Allergies Allergy Unknown Verified 11/21/22 13:02 Review of Systems Review of Systems: All systems reviewed & are unremarkable except as noted in HPI and below PMFSH Past Medical History Medical History Hypertension (normal spontaneous vaginal delivery) x 2 Right wrist fracture Surgical History Surgical History History of cholecystectomy History of hysteroscopy 2020 Social History Social History Smoking status: Never smoker Second hand tobacco smoke exposure: Yes () Alcohol intake: never Substance use: never Lack of Transportation: No Lack of Food: Never True Current Housing: I Have Housing Concerned About Future Housing: No Difficulty Paying Gas/Electric Bills: No Difficulty Paying for Meds: No Currently Unemployed: No Education: High School Diploma/GED Difficulty w/ Childcare or Family Care: No Living arrangements: with family Spiritual care concerns: No Exam Narrative: EXAMINATION OF ORGAN SYSTEMS/BODY AREAS: Constitutional: Vital signs per nursing GENERAL:[No acute distress, non-toxic appearing.] Does appear pale HEAD: Normal with no signs of head trauma. EYES: EOMI, conjunctiva pale ENT: Hearing grossly intact LUNGS: Nonlabored breathing. HEART: [Regular rate and rhythm] ABD: [Soft], [nontender to palpation] : On exam, scant blood in vault after removal of tampon which was not saturated but did have some blood after 30 min insertion EXT: Normal range of motion SKIN: Pale NEURO: [Alert and oriented x 3. No gross focal sensory or strength deficits.] PSYCH: Normal affect Course Vital Signs Vital signs: Vital Signs Temperature 98 F 11/21/22 09:56 Pulse Rate 97 11/21/22 09:56 Respiratory Rate 18 11/21/22 09:56 Blood Pressure 140/60 11/21/22 09:56 Pulse Oximetry 100 11/21/22 09:56 Oxygen Delivery Room Air 11/21/22 09:56 Temperature 98.4 F 11/21/22 16:55 Pulse Rate 80 11/21/22 16:55 Respiratory Rate 16 11/21/22 16:55 Blood Pressure 137/67 11/21/22 16:55 Pulse Oximetry 100 11/21/22 16:55 Oxygen Delivery Room Air 11/21/22 17:11 MDM - Recheck/Abnormal Lab/Rx MDM Narrative Medical decision making narrative: 52-year-old female presenting with heavy uterine bleeding and low hemoglobin, on exam she is quite pale but otherwise does not appear to be toxically ill, her hemoglobin did return at 4.3, we will start transfusing, given how long it will take to transfuse at least 3 units of blood and the fact that the patient still has ongoing active bleeding at this time, I have called her SHAFT REPAIRER who is agreeable to admitting the patient, we will give a dose of TXA after discussion with OB. Patient agreeable to this. Lab Data 11/21/22 10:11 11/21/22 10:11 Labs: La
--- NOTE | 2022-11-21 20:49 | PM.IMHP ---
H&P: HPI History of Present Illness Date/Time: 11/21/22 20:49 Chief Complaint: severe anemia Narrative: 52 yo admitted through the ER for blood transfusion. Patient with perimenopausal abnormal bleeding. She had skipped several cycles in early 2022 then bleed heavy and long. Patient under went hysteroscopy with D&C in 06/11 with benign polyp and prolilferative endometrium. Patient elected to observe cycles at that time and was to draw a CBC 08/11. Patient called 11/20 reporting 15 days of heavy bleeding. She saw her PCP that morning and labs were drawn. She was given Rx for Slynd by phone and was instructed to follow up depending on the lab work. Her PCP received labs and apparently Hb was 4 so she was sent to [place] for outpatient transfusion. They sent patient to ER instead and ER called me for plan. Patient being admitted for 3 units PRBCs. Her bleeding per ER MD was light at this time. Recommended to continue Slynd that was started yesterday and give one dose of TXA for now to be repeated if bleeding increases. I requested patient be admitted to Ob pp floor. Patient instead admitted to medical floor. [facility] Past Medical History Medical History (Updated 11/21/22 @ 21:02 by Catrina Oakes MD) Hypertension (normal spontaneous vaginal delivery) x 2 Right wrist fracture Surgical History Surgical History (Updated 11/21/22 @ 20:58 by Catrina Oakes MD) History of cholecystectomy History of hysteroscopy 04/2019 and 05/2022 Family History Family History (Updated 11/21/22 @ 21:00 by Catrina Oakes MD) Grandparent Breast cancer, Onset Age: 60 approximate age Diabetes mellitus Social History Social History Smoking status: Never smoker Second hand tobacco smoke exposure: Yes () Alcohol intake: never Substance use: never Lack of Transportation: No Lack of Food: Never True Current Housing: I Have Housing Concerned About Future Housing: No Difficulty Paying Gas/Electric Bills: No Difficulty Paying for Meds: No Currently Unemployed: No Education: High School Diploma/GED Difficulty w/ Childcare or Family Care: No Living arrangements: with family Spiritual care concerns: No Meds Home Medications and Allergies Home Medications Medication Instructions Recorded Confirmed Type losartan 50 mg tablet 50 mg PO DAILY #30 tabs 05/06/19 11/21/22 Rx carvedilol 6.25 mg tablet 6.25 mg PO BID 05/29/22 11/21/22 History cephalexin 500 mg capsule 500 mg PO Q6H 11/21/22 11/21/22 History drospirenone (contraceptive) 4 mg 1 tablet PO DAILY 11/21/22 11/21/22 History (28) tablet ferrous gluconate 324 mg (37.5 mg 324 mg PO BID 11/21/22 11/21/22 History iron) tablet Allergies Allergy/AdvReac Type Severity Reaction Status Date / Time No Known Allergies Allergy Unknown Verified 11/21/22 13:02 Vital Signs Vital Signs - 24 hr 11/21/22 09:56 11/21/22 11:43 11/21/22 12:16 Temperature 98 F 98.0 F Pulse Rate 97 74 73 Respiratory Rate 18 18 16 Blood Pressure 140/60 141/67 H 159/98 H Pulse Oximetry 100 100 97 Oxygen Delivery Room Air 11/21/22 12:53 11/21/22 13:09 11/21/22 13:43 Temperature 98.4 F 98.5 F Pulse Rate 77 72 Respiratory Rate 16 18 Blood Pressure 131/63 129/69 Pulse Oximetry 100 100 100 Oxygen Delivery Room Air 11/21/22 14:09 11/21/22 15:09 11/21/22 16:09 Temperature 98.7 F 98.4 F 98.5 F Pulse Rate 74 73 74 Respiratory Rate 16 16 16 Blood Pressure 146/71 H 135/68 138/63 Pulse Oximetry 100 100 100 Oxygen Delivery 11/21/22 16:40 11/21/22 16:44 11/21/22 16:55 Temperature 98.0 F 98.4 F Pulse Rate 71 71 80 Respiratory Rate 16 16 Blood Pressure 148/84 H 137/67 Pulse Oximetry 100 100 Oxygen Delivery 11/21/22 16:55 11/21/22 17:11 11/21/22 17:55 Temperature 98.4 F 98.2 F Pulse Rate 80 73 Respiratory Rate 16 16 Blood Pressure 137/67
[2022-11-22] MEDS: CEPHALEXIN 500 MG CAPSULE PO ×2 (03:02→09:07)
[2022-11-22 05:50] LABS: Hematocrit 25.5 % (37.0-47.0); Hemoglobin 7.8 g/dL (12.0-15.0); Mean Corpuscular HGB Conc 30.6 g/dl (32-36); Mean Corpuscular Hemoglobin 23.1 pg (26-34); Mean Corpuscular Volume 75.4 fl (80-100); Mean Platelet Volume 9.8 fl (7.4-10.4); Platelet Count Result 392 k/mm3 (150-375); Red Blood Count 3.38 M/mm3 (4.2-5.4); Red Cell Distribution Width 20.4 % (11.5-14.5); White Blood Count 8.9 K/mm3 (4.5-10.0)
[2022-11-22 07:20] VITALS: BP 130/73; PULSE 63; RESP 18; TEMP 36.6; TEMP 36.7; O2SAT 98
[2022-11-22 07:28] VITALS: PULSE 63
[2022-11-22] MEDS: LOSARTAN POTASSIUM 50 MG TABLET PO (07:28)
[2022-11-22] MEDS: carvediloL 6.25 MG TABLET PO (07:28)
[2022-11-22] MEDS: FERROUS GLUCONATE 324 MG TABLET PO (07:28)
--- NOTE | 2022-11-22 07:57 | WPDPN ---
Progress Note: A&P Assessment and Plan (1) Menorrhagia: Code(s): N92.0 - Excessive and frequent menstruation with regular cycle Status: Acute Assessment and Plan: Starting Slynd (2) Anemia: Qualifiers: Anemia type: iron deficiency Iron deficiency anemia type: unspecified iron deficiency Qualified Code(s): D50.9 - Iron deficiency anemia, unspecified Code(s): D64.9 - Anemia, unspecified Status: Acute Assessment and Plan: s/p 3 units PRBCs Plan Plan DC home today. F/up in office. Plan repeat CBC in 8 weeks. Bleeding precautions discussed. Subjective Date/time seen: 11/22/22 07:30 Interval history: Sitting up in bed. Color WNL. Reports feeling better. s/p 3 Units PRBCs. Denies dizziness, lightheadedness, or SOB with ambulation. Tolerating PO food and fluid. Ambulating to bathroom well. Desires discharge home. Review of Systems Review of Systems: All systems reviewed & are unremarkable except as noted in HPI and below Exam Narrative: Doing well. Denies complaints. Color WNL. Const: General: cooperative, healthy appearing, no acute distress and alert Orientation/consciousness: patient oriented x3 Limitations: no limitations Resp: Effort & Inspection: normal respiratory effort and able to speak in complete sentences Auscultation: clear to auscultation bilaterally Cardio: Rate: regular rate GI: Inspection: normal to inspection Auscultation: normal bowel sounds : General: Yes bladder normal to palpation Speculum Exam - Vagina: vaginal bleeding (scant) Bimanual exam- vagina & uterus: bladder normal to palpation Skin: General skin exam: normal color and no rashes or lesions noted Neuro: General: patient oriented x3 and moves all extremities Cognition (Neuro): normal cognition Extrem: General: normal to inspection and no calf tenderness Psych: Appearance: grossly normal Mental Status: mental status grossly normal Affect: normal affect Thought process: Normal thought process present Objective Data Vital Signs Vital Signs: Vital Signs - 24 hr 11/21/22 09:56 11/21/22 11:43 11/21/22 12:16 Temperature 98 F 98.0 F Pulse Rate 97 74 73 Respiratory Rate 18 18 16 Blood Pressure 140/60 141/67 H 159/98 H Pulse Oximetry 100 100 97 Oxygen Delivery Room Air 11/21/22 12:53 11/21/22 13:09 11/21/22 13:43 Temperature 98.4 F 98.5 F Pulse Rate 77 72 Respiratory Rate 16 18 Blood Pressure 131/63 129/69 Pulse Oximetry 100 100 100 Oxygen Delivery Room Air 11/21/22 14:09 11/21/22 15:09 11/21/22 16:09 Temperature 98.7 F 98.4 F 98.5 F Pulse Rate 74 73 74 Respiratory Rate 16 16 16 Blood Pressure 146/71 H 135/68 138/63 Pulse Oximetry 100 100 100 Oxygen Delivery 11/21/22 16:40 11/21/22 16:44 11/21/22 16:55 Temperature 98.0 F 98.4 F Pulse Rate 71 71 80 Respiratory Rate 16 16 Blood Pressure 148/84 H 137/67 Pulse Oximetry 100 100 Oxygen Delivery 11/21/22 16:55 11/21/22 17:11 11/21/22 17:55 Temperature 98.4 F 98.2 F Pulse Rate 80 73 Respiratory Rate 16 16 Blood Pressure 137/67 154/91 H Pulse Oximetry 100 100 Oxygen Delivery Room Air 11/21/22 18:55 11/21/22 19:49 11/21/22 19:52 Temperature 98.5 F 99.3 F 99.3 F Pulse Rate 69 67 67 Respiratory Rate 18 18 20 Blood Pressure 136/69 153/81 H 169/88 H Pulse Oximetry 100 100 Oxygen Delivery 11/21/22 20:07 11/21/22 21:07 11/21/22 22:07 Temperature 99.3 F 98.8 F 98.2 F Pulse Rate 71 68 69 Respiratory Rate 20 18 18 Blood Pressure 145/81 H 158/87 H 155/87 H Pulse Oximetry 100 100 Oxygen Delivery 11/21/22 21:07 11/21/22 22:35 11/21/22 22:35 Temperature 98.8 F 98.8 F 98.8 F Pulse Rate 68 68 68 Respiratory Rate 18 18 18 Blood Pressure 150/75 H 158/87 H 158/87 H Pulse Oximetry 100 Oxygen Delivery 11/22/22 07:28 11/22/22 07:20 11/22/22 07:20 Temperature 98.0 F 98 F Pulse Rate 63 63 63 Respiratory Rate 18 18 Blood Pressure 130/73 130/73
--- NOTE | 2022-11-22 10:16 | PC.NURSE ---
On 11/22/22, the student, Berta Roper, provided care and completed [facility] documentation on this patient. I have reviewed the student's documentation and agree with the findings.
--- NOTE | 2022-11-27 17:58 | PM.OBTRLD ---
OB - Triage/Final Diagnosis Visit Information Date of evaluation: 11/22/22 Reason for evaluation: other (menorrhagia) Comments/Additional reasons for admission: I have assessed the risk for this patient, Rosey Preciado, and determined that she would benefit from observation care. Evaluation Laboratory results: Laboratory Tests 11/21/22 11/21/22 11/22/22 10:11 10:12 05:34 WBC 7.6 8.9 RBC 2.32 L 3.38 L Hgb 4.3 L* D 7.8 L D Hct 16.1 L* 25.5 L MCV 69.4 L 75.4 L D MCH 18.5 L 23.1 L D MCHC 26.7 L 30.6 L RDW 18.2 H 20.4 H Plt Count 456 H 392 H MPV 9.6 9.8 Immature Gran % (Auto) 0.5 Neut % (Auto) 59.4 Lymph % (Auto) 27.0 [place] % (Auto) 8.6 H Eos % (Auto) 4.0 Baso % (Auto) 0.5 Lymph # (Auto) 2.04 [place] # (Auto) 0.7 H Eos # (Auto) 0.3 Baso # (Auto) 0.0 Abs Immat Gran (auto) 0.04 H Absolute Neuts (auto) 4.5 Absolute Nucleated RBC 0.0 Nucleated RBC % 0.3 H Platelet Estimate Increased Hypochromasia 3+ Poikilocytosis 1+ Anisocytosis 2+ Microcytosis 1+ Schistocytes None seen Sodium 136 L Potassium 4.4 Chloride 104 Carbon Dioxide 27 Anion Gap 5 L BUN 11 D Creatinine 0.80 Estim Creat Clear Calc 86 Estimated GFR > 60 Glucose 123 H Calcium 8.7 Blood Type B Negative Antibody Screen Negative Crossmatch See Detail
== END 2022-11-22 09:25 | disposition home or self-care (01) ==
LOC: ANHED 10:30 → ANH2MED 11:29 → ANHOB2 14:42
PROVIDERS: Admitting Provider Obstetrics & Gynecology Gynecology; Emergency Provider Emergency Medicine; PCP Emergency Medicine; Visit Provider Obstetrics & Gynecology Gynecology
DX: N92.0 Excessive and frequent menstruation with regular cycle (principal); D50.9 Iron deficiency anemia, unspecified; R53.83 Other fatigue; I10 Essential (primary) hypertension; Z79.890 Hormone replacement therapy; Z79.899 Other long term (current) drug therapy
CPT/HCPCS: 36415; 36430; 80048; 85025; 85027; 86850; 86900; 86901; 86920; 86923; 96374; 99285; A9270; G0378; J7050; P9016

== ENCOUNTER 2023-04-27 14:59 | Outpatient (CLI) | payer BC, SELFPAY ==
--- NOTE | ~2023-04-27 | MM_ITS ---
EXAMINATION: MM screening [facility] BI w shyam HISTORY: Screening mammogram TECHNIQUE: Craniocaudal and mediolateral oblique 3-D tomosynthesis images were obtained and synthetic 2-D images were generated. CAD analysis was submitted and interpreted. COMPARISON: 10/07/2021 diagnostic left mammogram and limited left breast ultrasound 10/08/2021 bilateral screening mammogram 06/04/2020 diagnostic left mammogram and limited left breast ultrasound 05/08/2020 bilateral screening mammogram BREAST PARENCHYMAL COMPOSITION: There are scattered areas of fibroglandular density. FINDINGS: There is no evidence of suspicious mass, calcification, or architectural distortion to sugg est malignancy in either breast. There has been no suspicious interval change. IMPRESSION: 1. No mammographic evidence of malignancy. 2. Recommend routine screening mammography in one year. BI-RADS Category 1: Negative Reviewed, dictated and finalized at location A. SION ANALYST
== END 2023-04-27 15:00 ==
LOC: MICIMG 14:59
PROVIDERS: PCP Advanced Practice Midwife; Visit Provider Advanced Practice Midwife
DX: Z12.31 Encounter for screening mammogram for malignant neoplasm of breast (principal)
CPT/HCPCS: 77063; 77067

== ENCOUNTER 2024-05-13 14:22 | Outpatient (CLI) | payer OTHER, SELFPAY ==
--- NOTE | ~2024-05-13 | MM_ITS ---
EXAMINATION: MM screening [facility] BI w shyam HISTORY: Screening TECHNIQUE: Craniocaudal and mediolateral oblique 3-D tomosynthesis images were obtained and synthetic 2-D images were generated. CAD analysis was submitted and interpreted. COMPARISON: 04/27/2023 and dating back to 05/25/2020 BREAST PARENCHYMAL COMPOSITION: There are scattered areas of fibroglandular density. FINDINGS: Punctate calcifications are detected bilaterally, stable and benign in appearance. Stable parenchymal pattern without suspicious microcalcifications, architectural distortion, discrete masses or significant asymmetry. IMPRESSION: 1. No mammographic evidence of malignancy. 2. Recommend routine screening mammography in one year. BI-RADS Category 2: Benign finding(s). Reviewed, dictated and finalized at location A.
== END 2024-05-13 14:23 | disposition home or self-care (01) ==
LOC: MICIMG 14:24
PROVIDERS: PCP Emergency Medicine; Visit Provider Obstetrics & Gynecology Gynecology
DX: Z12.31 Encounter for screening mammogram for malignant neoplasm of breast (principal)
CPT/HCPCS: 77063; 77067